=== PATIENT | male | born 1990 | race African-American/Black ===

== ENCOUNTER 2019-06-08 22:03 | Inpatient (IN) | payer MEDICAID ==
[~2019-06-08] VITALS: Ht 180.3 cm; Wt 73.5 kg
[2019-06-08] MEDS ORDERED: VISCOUS LIDOCAINE 2% 15 ML UDC PO STA (22:29)
[2019-06-08] MEDS ORDERED: DICYCLOMINE 10 MG/5 ML ORAL SYR PO STA (22:29)
[2019-06-08] MEDS ORDERED: KETOROLAC 30MG/ML VIAL IV STA (22:29)
[2019-06-08] MEDS ORDERED: ONDANSETRON HCL 4MG/2ML INJ IV STA (22:29)
[2019-06-08] MEDS ORDERED: MAGNESIUM/ALUMINUM HYDROXIDE/SIMETHICONE 30ML UDC PO STA (22:29)
[2019-06-08 22:56] LABS: BASOPHILS % 0.3 % (0.0-2.0); EOSINOPHILS % 0.5 % (0.0-5.0); HEMOGLOBIN. 14.3 g/dL (14.0-18.0); MEAN CORPUSCULAR HEMOGLOBIN 30.5 pg (28.0-32.0); MEAN CORPUSCULAR VOLUME 91.3 fL (80.0-94.0); MEAN PLATELET VOLUME 6.7 fl (7.4-10.4); MONOCYTES % 7.7 % (2.0-8.0); NEUTROPHILS % 68.5 % (40.0-76.0); PLATELET 282 x1000/uL (130-400); RED BLOOD CELL COUNT 4.71 mill/uL (4.7-6.1)
[2019-06-08 23:01] LABS: CHLORIDE 103 mEq/L (98-107)
[2019-06-08 23:04] LABS: PROTHROMBIN TIME 10.5 sec (9.6-11.0)
[2019-06-09 02:00] VITALS: BP_SYST 120; BP_SYST 128; BP_DIAS 71; BP_DIAS 88
[2019-06-09 04:00] VITALS: BP 125/76
[2019-06-09] MEDS ORDERED: MORPHINE SULFATE 2 MG/ML CPJ (NOT FOR IM USE) IV PRN (04:15)
[2019-06-09] MEDS ORDERED: DEXT 5%/0.45% NACL 1000ML 1,000 ML IV SCH (05:00)
[2019-06-09] MEDS ORDERED: ACETAMINOPHEN 325MG TABLET PO PRN (07:00)
[2019-06-09] MEDS ORDERED: LORAZEPAM 2MG/ML CPJ IV PRN (07:00)
[2019-06-09] MEDS ORDERED: MAGNESIUM/ALUMINUM HYDROXIDE/SIMETHICONE 30ML UDC PO PRN (07:00)
[2019-06-09] MEDS ORDERED: HYDRALAZINE 20MG/ML VIAL IV PRN (07:00)
[2019-06-09] MEDS ORDERED: HYDROCODONE/ACETAMINOPHEN 10/325MG TABLET PO PRN (07:00)
[2019-06-09] MEDS ORDERED: DOCUSATE SODIUM 100MG CAPSULE PO PRN (07:00)
[2019-06-09] MEDS ORDERED: CLONIDINE 0.1MG TABLET PO PRN (07:00)
[2019-06-09] MEDS ORDERED: DIPHENHYDRAMINE 50MG/ML VIAL IV PRN (07:00)
[2019-06-09] MEDS ORDERED: DEXTROSE 50% WATER 50ML SYRINGE IV PRN (07:00)
[2019-06-09] MEDS ORDERED: NA PHOS,M-B/NA PHOS,DI-BA ENEMA 118ML PR PRN (07:00)
[2019-06-09] MEDS ORDERED: ONDANSETRON HCL 4MG/2ML INJ IV PRN (07:00)
[2019-06-09] MEDS ORDERED: IPRATROPIUM/ALBUTEROL 0.5-3(2.5)MG/3ML NEB HHN PRN (07:00)
[2019-06-09] MEDS ORDERED: GUAIFENESIN 200MG/10ML SUGAR FREE UDC PO PRN (07:00)
[2019-06-09] MEDS ORDERED: HYDRALAZINE 10 MG in SODIUM CHLORIDE 0.9% 49.5 ML IV PRN (07:30)
[2019-06-09 08:00] VITALS: BP 122/77
[2019-06-09] MEDS ORDERED: ENOXAPARIN 40MG/0.4ML SYR SUBCUT SCH (09:00)
[2019-06-09 09:04] LABS: BASOPHILS % 0.4 % (0.0-2.0); EOSINOPHILS % 0.9 % (0.0-5.0); HEMATOCRIT. 40.6 % (42.0-52.0); HEMOGLOBIN. 13.7 g/dL (14.0-18.0); MEAN CORPUSCULAR HEMOGLOBIN 30.7 pg (28.0-32.0); MEAN CORPUSCULAR VOLUME 91.3 fL (80.0-94.0); MEAN PLATELET VOLUME 6.7 fl (7.4-10.4); MONOCYTES % 10.4 % (2.0-8.0); NEUTROPHILS % 52.3 % (40.0-76.0); PLATELET 265 x1000/uL (130-400); RED BLOOD CELL COUNT 4.45 mill/uL (4.7-6.1); RED CELL DISTRIBUTION WIDTH 15.7 % (11.6-14.6)
[2019-06-09 09:23] LABS: CHLORIDE 103 mEq/L (98-107)
[2019-06-09 12:00] VITALS: BP 121/78
[2019-06-09] MEDS ORDERED: INFLUENZA VIRUS VACCINE(AFLURIA) 0.5ML SYR IM ONE (12:00)
[2019-06-09] MEDS ORDERED: SODIUM CHLORIDE 0.9% INJ 3ML FLUSH IVF SCH (14:00)
[2019-06-09 15:06] LABS: CLARITY URINE CLEAR (CLEAR); COLOR URINE YELLOW (YELLOW); KETONES URINE 1+ (NEGATIVE); LEUKOCYTE ESTERASE URINE NEGATIVE (NEGATIVE); NITRITE URINE NEGATIVE (NEGATIVE); OCCULT BLOOD URINE NEGATIVE (NEGATIVE); PH URINE 6.5 (4.5-8.0); PROTEIN URINE NEGATIVE (NEGATIVE); SPECIFIC GRAVITY URINE 1.016 (1.005-1.030)
[2019-06-09 16:00] VITALS: BP 135/88
[2019-06-09] MEDS ORDERED: FOLIC ACID 1 MG, THIAMINE HCL 100 MG, MVI, ADULT NO.1 10 ML in DEXTROSE 5% WATER 1,000 ML IV ONE ×4 (16:00)
[2019-06-09 16:53] VITALS: BP 127/89
== END 2019-06-09 19:20 | disposition home or self-care (01) | DRG 282 ==
LOC: ER 22:03 → 6EST 06-09 00:16 → ENRESERV 06-09 00:38
PROVIDERS: ADMIT Internal Medicine; ATTEND Internal Medicine
DX: K85.20 Alcohol induced acute pancreatitis without necrosis or infection (principal)
CPT/HCPCS: 36415; 76700; 80048; 81003; 93005; 96365; 99285; J1650; J1885; J2405; J3411; J3490; J7070

== ENCOUNTER 2021-08-28 20:18 | Emergency (ER) | payer MEDICAID ==
[~2021-08-28] VITALS: Ht 175.3 cm; Wt 86.0 kg
[2021-08-29 00:49] LABS: BASOPHILS % 0.3 % (0.0-2.0); HEMATOCRIT. 32.5 % (42.0-52.0); LYMPHOCYTES % 25.3 % (20.0-50.0); MEAN PLATELET VOLUME 7.4 fl (7.4-10.4); MONOCYTES % 7.4 % (2.0-8.0); PLATELET 197 x1000/uL (130-400); RED BLOOD CELL COUNT 3.42 mill/uL (4.7-6.1); RED CELL DISTRIBUTION WIDTH 14.8 % (11.6-14.6)
[2021-08-29 01:02] LABS: CHLORIDE 110 mEq/L (98-107)
[2021-08-29 01:41] LABS: ETHANOL BLOOD 310 mg/dL
[2021-08-29 05:30] VITALS: BP 114/71
== END 2021-08-29 05:56 | disposition home or self-care (01) ==
LOC: ER 20:18
DX: R41.82 Altered mental status, unspecified (principal); F12.10 Cannabis abuse, uncomplicated
CPT/HCPCS: 36415; 80053; 80320; 85025; 99285; G0480

== ENCOUNTER 2021-11-12 08:58 | Emergency (ER) | payer MEDICAID ==
[~2021-11-12] VITALS: Ht 170.2 cm; Wt 70.0 kg
[2021-11-12 09:14] VITALS: BP 135/96
== END 2021-11-12 10:40 | disposition home or self-care (01) ==
LOC: ER 09:05
DX: F15.188 Other stimulant abuse with other stimulant-induced disorder (principal); F12.90 Cannabis use, unspecified, uncomplicated; F31.9 Bipolar disorder, unspecified; F20.9 Schizophrenia, unspecified
CPT/HCPCS: 99283